=== PATIENT | female | born 1955 | race Caucasian/White ===

== ENCOUNTER 2018-10-12 12:36 | Emergency (ER) | payer OTHER ==
[~2018-10-12] VITALS: Ht 172.7 cm; Wt 138.0 kg
[2018-10-12] MEDS ORDERED: MELO15TA28 PO (12:57)
[2018-10-12] MEDS ORDERED: VERA24TASA PO (12:57)
[2018-10-12] MEDS ORDERED: SERT-155 PO (12:57)
[2018-10-12] MEDS ORDERED: TRAM50TA2 PO (12:57)
--- NOTE | 2018-10-12 14:25 | REP ---
CHEST X-RAY: Two views. HISTORY: Chest pain. FINDINGS: The lungs are quite hyperinflated consistent with some degree of COPD but clear. Pleural angles are sharp. Heart is not enlarged. The aorta is tortuous. There are degenerative changes in the thoracic spine mild in degree. There is diffuse osteopenia. IMPRESSION: Hyperinflation. Otherwise no acute disease. Electronically Signed by Yasmany Gordon MD 10/12/2018 08:18 P
--- NOTE | 2018-10-12 14:54 | ECGEPIP ---
Stationary ECG Study [facility] - ED Test Date: 2018-10-12 Pat Name: BRITTANY RAMIREZ Department: Room: - Gender: F Floor Polisher: ct : 1955 Requested By: Diane Smith Order Number: [id number] Reading MD: Diane Smith Measurements Intervals Daisy Rate: 52 P: 64 WV: 147 QRS: 75 QRSD: 95 T: 69 QT: 488 QTc: 454 Interpretive Statements SINUS BRADYCARDIA NO PRIOR FOR COMPARISON Electronically Signed On 10-12-2018 14:54:10 EST by Diane Smith
[2018-10-12 15:01] LABS: BASO % 0.7 % (0.0-1.0); EOS % 0.4 % (0.0-3.0); HEMATOCRIT 37.5 % (36.0-47.0); HEMOGLOBIN 12.6 g/dl (12.0-15.5); LYMPH # 1.3 10^3/uL (1.5-4.5); LYMPH % 23.8 % (24.0-44.0); MEAN CORPUSCULAR HEMOGLOBIN 30.4 pg (27.0-33.0); MEAN CORPUSCULAR HGB CONC 33.6 g/dl (32.0-36.5); MEAN CORPUSCULAR VOLUME 90.4 fl (80.0-96.0); MONO # 0.2 10^3/uL (0.0-0.8); MONO % 4.4 % (0.0-5.0); NEUTROPHILS # 3.9 10^3/uL (1.8-7.7); NEUTROPHILS % 70.5 % (36.0-66.0); PLATELET COUNT, AUTOMATED 190 10^3/uL (150-450); RED BLOOD COUNT 4.15 10^6/uL (4.00-5.40); WHITE BLOOD COUNT 5.5 10^3/uL (4.0-10.0)
[2018-10-12 15:28] LABS: ALBUMIN 4.1 GM/DL (3.2-5.2); ALT/SGPT 16 U/L (12-78); BILIRUBIN,DIRECT 0.1 MG/DL (0.0-0.2); BILIRUBIN,TOTAL 0.3 MG/DL (0.2-1.0); BLOOD UREA NITROGEN 13 MG/DL (7-18); CALCIUM LEVEL 9.2 MG/DL (8.8-10.2); CARBON DIOXIDE LEVEL 30 MEQ/L (21-32); CHLORIDE LEVEL 107 MEQ/L (98-107); CPK CREATINE PHOSPHOKINASE 88 U/L (26-192); CREATININE FOR GFR 0.82 MG/DL (0.55-1.30); GLOMERULAR FILTRATION RATE > 60.0 (>45); GLUCOSE, FASTING 98 MG/DL (70-100); LIPASE 286 U/L (73-393); MB/CK RELATIVE INDEX 2.27 (< OR =4); POTASSIUM SERUM 5.1 MEQ/L (3.5-5.1); SODIUM LEVEL 144 MEQ/L (136-145); TOTAL PROTEIN 6.9 GM/DL (6.4-8.2); TROPONIN I < 0.02 NG/ML (< 0.10)
[2018-10-12] MEDS ORDERED: LISI2.5T5 PO (15:54)
[2018-10-12 16:24] VITALS: BP 154/88
== END 2018-10-12 16:21 | disposition home or self-care (01) ==
LOC: M ED 12:36
DX: I10 Essential (primary) hypertension (principal); K21.9 Gastro-esophageal reflux disease without esophagitis; G43.909 Migraine, unspecified, not intractable, without status migrainosus

== ENCOUNTER 2022-03-25 09:47 | Day surgery (SDC) | payer MEDICARE, OTHER ==
[~2022-03-25] VITALS: Ht 172.7 cm; Wt 60.1 kg
[~2022-03-25 09:47] MED LIST: BIO X PO; BIOT1CAP3 PO; CVS1CAP2 PO; D-50TAB PO; LIDO1ADH20 TP; LIDOCAINE 1% SDV 5ML VIAL As Ordered ONE; LISI2.5T9 PO; LR 1,000 ML IV SCH; MAGN300T2 PO; MELA10TA2 PO; MELA5TAB10 PO; MELO15TA28 PO; N-ACCAP PO; NASCENT IODINE; NIAC500T17 PO; PAINTAB PO; PANT20TA6 PO; QUERPOW2 PO; SELE100T PO; SERT50TA29 PO; THYROID COMPLEX PO; TRAM50TA2 PO; TURM1CAP5 PO; VERA240T65 PO; VITA30005 SL; VITA500C19 PO; VITMTA PO; ZINC1TAB2 PO; [UNRECOGNIZED DRUG - OTHER] PO
[2022-03-25] MEDS: TETRACAINE 0.5% OPHTH SOLN 4ML OD SCH (10:28)
[2022-03-25] MEDS: FLURBIPROFEN 0.03% OPHTH SOLN 2.5 ML OD SCH ×2 (10:30→10:49)
[2022-03-25] MEDS: PHENYLEPHRINE 2.5% OPHTH SOL 2ML OD SCH ×2 (10:30→10:49)
[2022-03-25] MEDS: CYCLOPENTOLATE 1% OPHTH SOLN 2 ML BTL OD SCH ×2 (10:30→10:49)
[2022-03-25] MEDS ORDERED: DUOVISC (0.50ML VISCOAT/0.85ML PROVISC) OPHTH KIT As Ordered ONE (12:16)
[2022-03-25] MEDS ORDERED: fentaNYL 100 MCG/2 ML INJECTION As Ordered ONE (12:44)
[2022-03-25 13:05] VITALS: BP 118/79
[2022-03-25] MEDS ORDERED: MIDAZOLAM INJ 2MG/2ML VIAL (J2250 PER 1MG) As Ordered ONE (13:27)
== END 2022-03-25 13:15 | disposition home or self-care (01) ==
LOC: M SDC 09:47
PROVIDERS: ATTEND Ophthalmology
DX: H25.11 Age-related nuclear cataract, right eye (principal); Z79.899 Other long term (current) drug therapy
CPT/HCPCS: 66984; J2250; J3010; V2788

== ENCOUNTER → 2022-05-01 | Outpatient (CLI) | payer MEDICARE, OTHER ==
[~2022-05-01] MED LIST changes: -LIDOCAINE 1% SDV 5ML VIAL As Ordered ONE; -LR 1,000 ML IV SCH
== END ==
LOC: M WHC 14:35
PROVIDERS: ATTEND Nurse Practitioner Primary Care
DX: Z12.31 Encounter for screening mammogram for malignant neoplasm of breast (principal); M85.89 Other specified disorders of bone density and structure, multiple sites; Z78.0 Asymptomatic menopausal state

== ENCOUNTER 2022-05-20 09:19 | Day surgery (SDC) | payer MEDICARE, OTHER ==
[~2022-05-20] VITALS: Ht 167.6 cm; Wt 58.4 kg
[~2022-05-20 09:19] MED LIST changes: +BIO PO; +CLAR10CA3 PO; +CVS-161 PO; +EQL50TAB2 PO; +FLAX10002 PO; +GALZ50CA PO; +LIDOCAINE 1% SDV 5ML VIAL As Ordered ONE; +LR 1,000 ML IV SCH; +MAGN400T2 PO; +MIDAZOLAM INJ 2MG/2ML VIAL (J2250 PER 1MG) As Ordered ONE; +QUERPOW2 XX; +SELENIUM PO; +[UNRECOGNIZED DRUG - OTHER] PO; +[UNRECOGNIZED DRUG - OTHER] PO; +fentaNYL 100 MCG/2 ML INJECTION As Ordered ONE
[2022-05-20] MEDS: TETRACAINE 0.5% OPHTH SOLN 4ML OS SCH ×3 (09:47→10:22)
[2022-05-20] MEDS: PHENYLEPHRINE 2.5% OPHTH SOL 2ML OS SCH ×3 (09:54→10:13)
[2022-05-20] MEDS: CYCLOPENTOLATE 1% OPHTH SOLN 2 ML BTL OS SCH ×3 (09:54→10:13)
[2022-05-20] MEDS: FLURBIPROFEN 0.03% OPHTH SOLN 2.5 ML OS SCH ×3 (09:54→10:13)
[2022-05-20 10:56] VITALS: BP 117/68
== END 2022-05-20 11:38 | disposition home or self-care (01) ==
LOC: M SDC 09:19
PROVIDERS: ATTEND Ophthalmology
DX: H25.12 Age-related nuclear cataract, left eye (principal); F32.A Depression, unspecified; Z79.899 Other long term (current) drug therapy; Z79.891 Long term (current) use of opiate analgesic
CPT/HCPCS: 66984; J2250; J3010; V2788

== ENCOUNTER → 2022-05-24 | Outpatient (REF) | payer MEDICARE, OTHER ==
[~2022-05-24] MED LIST changes: -LIDOCAINE 1% SDV 5ML VIAL As Ordered ONE; -LR 1,000 ML IV SCH; -MIDAZOLAM INJ 2MG/2ML VIAL (J2250 PER 1MG) As Ordered ONE; -fentaNYL 100 MCG/2 ML INJECTION As Ordered ONE
== END ==
LOC: M LAB REF 17:06
PROVIDERS: ATTEND Physician Assistant Medical
DX: J32.0 Chronic maxillary sinusitis (principal)

== ENCOUNTER → 2022-06-04 | Outpatient (CLI) | payer MEDICARE, OTHER | LOC: M RAD 18:16 | PROVIDERS: ATTEND Physician Assistant Medical | DX: J32.0 Chronic maxillary sinusitis (principal) ==

== ENCOUNTER 2022-11-12 09:08 | Day surgery (SDC) | payer MEDICARE, OTHER ==
[~2022-11-12] VITALS: Ht 170.2 cm; Wt 60.3 kg
[~2022-11-12 09:08] MED LIST changes: +12 H0.056; +APPLTAB2 PO; +CETI10CH PO; +MELO7.5T35 PO; +NIAC500C11 PO; +SYNT100T PO; +VITAE40CA PO; +ZINC50TA14 PO; +[UNRECOGNIZED DRUG - OTHER] PO
[2022-11-12] MEDS ORDERED: LR 1,000 ML IV SCH ×2 (09:40→16:55)
[2022-11-12] MEDS ORDERED: LIDO1PAD (10:11)
[2022-11-12] MEDS ORDERED: SUGAMMADEX SODIUM 500 MG/5 ML VIAL (BRIDION) As Ordered ONE (11:35)
[2022-11-12] MEDS ORDERED: ROCURONIUM BROMIDE 50MG/5ML VIAL As Ordered ONE ×3 (11:35→16:42)
[2022-11-12] MEDS ORDERED: ONDANSETRON 4MG 2ML VIAL As Ordered ONE (11:35)
[2022-11-12] MEDS ORDERED: LIDOCAINE 2% 100MG/5ML SDV (FOR ANES.) As Ordered ONE (11:35)
[2022-11-12] MEDS ORDERED: propofoL 200 MG/20 ML VIAL As Ordered ONE (11:35)
[2022-11-12] MEDS ORDERED: MIDAZOLAM INJ 2MG/2ML VIAL As Ordered ONE (11:50)
[2022-11-12] MEDS ORDERED: fentaNYL 100 MCG/2 ML INJECTION As Ordered ONE ×2 (11:50→15:44)
[2022-11-12] MEDS ORDERED: METHYLENE BLUE 0.5% (5MG/ML) 10 ML AMP (PROVAYBLUE) As Ordered ONE (12:40)
[2022-11-12] MEDS ORDERED: SODIUM CHLORIDE 0.9% NASAL GEL 15GM (AYR) As Ordered ONE (12:40)
[2022-11-12] MEDS ORDERED: EPINEPHrine 1MG/ML INJ 30ML MD-VIAL As Ordered ONE (12:40)
[2022-11-12] MEDS ORDERED: LIDOCAINE W/EPINEPHRINE 1% 20ML VIAL As Ordered ONE (12:40)
[2022-11-12] MEDS ORDERED: LACRILUBE (AKWA TEARS) OPHTH OINT 3.5GM As Ordered ONE (12:46)
[2022-11-12] MEDS ORDERED: ACETAMINOPHEN 1000MG 100ML IV BAG As Ordered ONE (13:31)
[2022-11-12] MEDS ORDERED: ePHEDrine SULFATE 25 MG/5 ML(5MG/ML) SYRINGE As Ordered ONE (13:35)
[2022-11-12] MEDS ORDERED: fentaNYL 100 MCG/2 ML INJECTION IV PRN (16:55)
[2022-11-12] MEDS ORDERED: oxyCODONE 5MG TAB PO PRN (16:55)
[2022-11-12] MEDS ORDERED: HYDROMORPHONE HCL 0.5 MG/ 0.5 ML SYRINGE IV PRN (16:55)
[2022-11-12] MEDS ORDERED: ONDANSETRON 4MG 2ML VIAL IV PRN (16:55)
[2022-11-12 18:12] VITALS: BP 139/77
== END 2022-11-12 18:46 | disposition home or self-care (01) ==
LOC: M SDC 09:08
PROVIDERS: ATTEND Otolaryngology
DX: J32.0 Chronic maxillary sinusitis (principal); E03.9 Hypothyroidism, unspecified; K21.9 Gastro-esophageal reflux disease without esophagitis; Z87.891 Personal history of nicotine dependence; Z79.899 Other long term (current) drug therapy
CPT/HCPCS: 30520; 31254; 31627; 88300; 88305; C2625; J0131; J0171; J1100; J2250; J2405; J3010; Q9968

== ENCOUNTER → 2024-07-09 | Outpatient (CLI) | payer MEDICARE, OTHER ==
[~2024-07-09] MED LIST changes: +LIDO1PAD; -NIAC500C11 PO; +NIAC500C5 PO; -VITA500C19 PO; +VITA500C22 PO
== END ==
LOC: M WHC 15:48
PROVIDERS: ATTEND Nurse Practitioner Primary Care
DX: Z12.31 Encounter for screening mammogram for malignant neoplasm of breast (principal)

== ENCOUNTER → 2025-02-17 | Outpatient (CLI) | payer MEDICARE, OTHER ==
[~2025-02-17] MED LIST changes: -GALZ50CA PO; +ZINC50CA4 PO
== END ==
LOC: M CLY 14:51
PROVIDERS: ATTEND Physician Assistant Medical
DX: M25.471 Effusion, right ankle (principal)

== ENCOUNTER → 2025-05-17 | Outpatient (CLI) | payer MEDICARE, OTHER ==
[~2025-05-17] MED LIST changes: -EQL50TAB2 PO; +VITA1TAB82 PO
== END ==
LOC: M SOG 06:51
PROVIDERS: ATTEND Physician Assistant
DX: S82.831A Other fracture of upper and lower end of right fibula, initial encounter for closed fracture (principal); X58.XXXA Exposure to other specified factors, initial encounter; Y92.9 Unspecified place or not applicable; Y93.9 Activity, unspecified; Y99.9 Unspecified external cause status

== ENCOUNTER → 2025-07-27 | Outpatient (CLI) | payer MEDICARE, OTHER | LOC: M EKG 14:58 | PROVIDERS: ATTEND Internal Medicine Cardiovascular Disease | DX: I48.91 Unspecified atrial fibrillation (principal); I10 Essential (primary) hypertension ==

== ENCOUNTER → 2025-09-28 | Outpatient (CLI) | payer MEDICARE, OTHER | LOC: M CARPUL 14:03 | PROVIDERS: ATTEND Internal Medicine Cardiovascular Disease | DX: I10 Essential (primary) hypertension (principal); I08.8 Other rheumatic multiple valve diseases ==